=== PATIENT | female | born 1955 | race Caucasian/White ===

== ENCOUNTER 2019-10-02 15:19 | Inpatient (IN) | payer OTHER ==
[2019-10-02] MEDS ORDERED: NITROGLYCERIN SL TABS 0.4 MG TAB SUBLINGUAL STA ×3 (15:52)
[2019-10-02] MEDS ORDERED: ASPIRIN 81 MG PO STA (15:52)
--- NOTE | 2019-10-02 16:01 | ED ---
General Adult HPI - General Chief complaint: Arrhythmia/Palpitations Stated complaint: AFIB Time Seen by Provider: 10/02/19 15:26 Source: patient, RN notes reviewed Mode of arrival: ambulatory Limitations: no limitations - History of Present Illness Initial comments: Patient is a pleasant 64-year-old female presenting to the emergency Department with chest discomfort and palpitations. Onset of symptoms was yesterday. Symptoms have been waxing and waning. Discomfort is currently 5/10. Discomfort feels a pressure. Patient is unclear if there could be some radiation towards left arm. Patient does have some associated dyspnea. Symptoms do worsen with exertion. Patient is easily fatigued. No nausea. No diaphoresis. Patient does have history of somewhat similar symptoms previously associated with heart problems. - Related Data Home Medications Medication Instructions Recorded Confirmed ALPRAZolam [Xanax] 0.5 mg PO DAILY PRN 10/02/19 10/02/19 Citalopram Hydrobromide [CeleXA] 40 mg PO HS 10/02/19 10/02/19 Gabapentin [Neurontin] 100 mg PO HS 10/02/19 10/02/19 Metoprolol Succinate [Toprol XL] 50 mg PO HS 10/02/19 10/02/19 Warfarin [Coumadin] 7.5 mg PO HS 10/02/19 10/02/19 amLODIPine [Norvasc] 5 mg PO HS 10/02/19 10/02/19 glipiZIDE [Glucotrol XL] 2.5 mg PO HS 10/02/19 10/02/19 Allergies Allergy/AdvReac Type Severity Reaction Status Date / Time ELLE Inhibitors Allergy Dyspnea Verified 10/02/19 16:37 latex Allergy Rash/Hives Verified 10/02/19 16:37 Review of Systems ROS Statement: Those systems with pertinent positive or pertinent negative responses have been documented in the HPI. ROS Other: All systems not noted in ROS Statement are negative. Constitutional: Denies: fever Eyes: Denies: eye pain ENT: Denies: throat pain Respiratory: Denies: cough Cardiovascular: Reports: chest pain, palpitations Endocrine: Denies: fatigue Gastrointestinal: Denies: abdominal pain Genitourinary: Denies: dysuria Musculoskeletal: Denies: back pain Skin: Denies: rash Neurological: Denies: weakness Past Medical History Past Medical History: Atrial Fibrillation, Diabetes Mellitus, Hyperlipidemia, Hypertension, Sleep Apnea/CPAP/BIPAP Additional Past Medical History / Comment(s): aortic heart valve narrowing History of Any Multi-Drug Resistant Organisms: None Reported Past Surgical History: Bariatric Surgery, Heart Catheterization With Stent Past Psychological History: Anxiety, Depression Smoking Status: Never smoker Past Alcohol Use History: None Reported Past Drug Use History: None Reported General Exam Limitations: no limitations General appearance: alert, in no apparent distress Head exam: Present: normocephalic Eye exam: Present: normal appearance, PERRL ENT exam: Present: normal oropharynx Respiratory exam: Present: normal lung sounds bilaterally Cardiovascular Exam: Present: irregular rhythm Expanded Peripheral pulses: 2+: Radial (R), Radial (L), Dorsalis Pedis (R), Dorsalis Pedis (L) GI/Abdominal exam: Present: soft. Absent: tenderness Extremities exam: Present: normal inspection. Absent: pedal edema, calf tenderness Neurological exam: Present: alert Psychiatric exam: Present: normal affect, normal mood Skin exam: Present: normal color Course Vital Signs 10/02/19 10/02/19 10/02/19 15:23 15:39 16:06 Temperature 97.5 F L Pulse Rate 111 H 109 H Pulse Rate [ 122 H [employer] ] Respiratory 20 18 Rate Blood Pressure 142/80 138/93 O2 Sat by Pulse 100 100 Oximetry 10/02/19 10/02/19 10/02/19 16:11 16:20 16:43 Temperature Pulse Rate 116 H 114 H 101 H Pulse Rate [ [employer] ] Respiratory 18 18 18 Rate Blood Pressure 112/72 99/82 110/95 O2 Sat by Pulse 98 98 100 Oximetry EKG Findings - EKG Comments: EKG Findings:: A. fib with RVR, rate 117. QRS 80. QT 332. QTC 463. Left axis. LVH criteria. No acute ST change. Q wave in leads 3 and aVF. Medical Decision Making - Medical Decision Making Patient reevaluated and resting comfortably in bed. Discomfort is improved however not completely resolved. Patient and family updated on results and plan. Case was discussed in detail with Dr. Gilmore, who will admit covered for hospital call. - Lab Data Result diagrams: 10/02/19 15:40 10/02/19 15:40 Lab Results 10/02/19 10/02/19 10/02/19 Range/Units 15:40 15:40 15:40 WBC 7.4 (3.8-10.6) k/uL RBC 4.59 (3.80-5.40) m/uL Hgb 10.9 L (11.4-16.0) gm/dL Hct 35.2 (34.0-46.0) % MCV 76.7 L (80.0-100.0) fL MCH 23.6 L (25.0-35.0) pg MCHC 30.8 L (31.0-37.0) g/dL RDW 17.0 H (11.5-15.5) % Plt Count 289 (150-450) k/uL Neutrophils % 67 % Lymphocytes % 24 % Monocytes % 5 % Eosinophils % 1 % Basophils % 0 % Neutrophils # 5.0 (1.3-7.7) k/uL Lymphocytes # 1.8 (1.0-4.8) k/uL Monocytes # 0.4 (0-1.0) k/uL Eosinophils # 0.1 (0-0.7) k/uL Basophils # 0.0 (0-0.2) k/uL Hypochromasia Slight Anisocytosis Slight Microcytosis Slight PT 16.9 H (9.0-12.0) sec INR 1.7 H (<1.2) APTT 26.1 (22.0-30.0) sec Sodium 136 L (137-145) mmol/L Potassium 4.2 (3.5-5.1) mmol/L Chloride 107 (98-107) mmol/L Carbon Dioxide 21 L (22-30) mmol/L Anion Gap 8 mmol/L BUN 17 (7-17) mg/dL Creatinine 0.77 (0.52-1.04) mg/dL Est GFR (CKD-EPI)AfAm >90 (>60 ml/min/1.73 sqM) Est GFR (CKD-EPI)NonAf 83 (>60 ml/min/1.73 sqM) Glucose 117 H (74-99) mg/dL Calcium 8.6 (8.4-10.2) mg/dL Magnesium 1.8 (1.6-2.3) mg/dL Total Bilirubin 0.3 (0.2-1.3) mg/dL AST 27 (14-36) U/L ALT 19 (4-34) U/L Alkaline Phosphatase 164 H (38-126) U/L Troponin I (0.000-0.034) ng/mL Total Protein 7.0 (6.3-8.2) g/dL Albumin 3.9 (3.5-5.0) g/dL Amylase 54 (30-110) U/L Lipase 199 (23-300) U/L 10/02/19 Range/Units 15:40 WBC (3.8-10.6) k/uL RBC (3.80-5.40) m/uL Hgb (11.4-16.0) gm/dL Hct (34.0-46.0) % MCV (80.0-100.0) fL MCH (25.0-35.0) pg MCHC (31.0-37.0) g/dL RDW (11.5-15.5) % Plt Count (150-450) k/uL Neutrophils % % Lymphocytes % % Monocytes % % Eosinophils % % Basophils % % Neutrophils # (1.3-7.7) k/uL Lymphocytes # (1.0-4.8) k/uL Monocytes # (0-1.0) k/uL Eosinophils # (0-0.7) k/uL Basophils # (0-0.2) k/uL Hypochromasia Anisocytosis Microcytosis PT (9.0-12.0) sec INR (<1.2) APTT (22.0-30.0) sec Sodium (137-145) mmol/L Potassium (3.5-5.1) mmol/L Chloride (98-107) mmol/L Carbon Dioxide (22-30) mmol/L Anion Gap mmol/L BUN (7-17) mg/dL Creatinine (0.52-1.04) mg/dL Est GFR (CKD-EPI)AfAm (>60 ml/min/1.73 sqM) Est GFR (CKD-EPI)NonAf (>60 ml/min/1.73 sqM) Glucose (74-99) mg/dL Calcium (8.4-10.2) mg/dL Magnesium (1.6-2.3) mg/dL Total Bilirubin (0.2-1.3) mg/dL AST (14-36) U/L ALT (4-34) U/L Alkaline Phosphatase (38-126) U/L Troponin I <0.012 (0.000-0.034) ng/mL Total Protein (6.3-8.2) g/dL Albumin (3.5-5.0) g/dL Amylase (30-110) U/L Lipase (23-300) U/L - Radiology Data Radiology results: image reviewed (Chest x-ray shows no acute process) Critical Care Time Critical Care Time: Yes Total Critical Care Time: 32 Disposition Clinical Impression: Atrial fibrillation with RVR, Tachycardia Disposition: ADMITTED IP TO THIS HOSP Is patient prescribed a controlled substance at d/c from ED?: No Referrals: Alex Nur MD [Primary Care Provider] - 1-2 days Decision Time: 17:05
--- NOTE | 2019-10-02 16:06 | XR ---
EXAMINATION TYPE: XR chest 2V DATE OF EXAM: 10/02/2019 COMPARISON: NONE HISTORY: Intermittent heart palpitations, shortness of breath, and chest heaviness. TECHNIQUE: Frontal and lateral views of the chest are obtained. FINDINGS: Elevation and eventration anterior aspect right hemidiaphragm. There is some chronic paren chymal change without suspicious focal air space opacity, pleural effusion, or pneumothorax seen. Th e cardiac silhouette size is upper limits of normal. The osseous structures are demineralized. Unde rlying scoliosis is present. Overlying vertical skin santosh partially imaged in the abdomen. IMPRESSION: Chronic changes without acute pulmonary process.
[2019-10-02 16:12] LABS: Anisocytosis Slight; Basophils % (A) 0 %; Eosinophils # (A) 0.1 k/uL (0-0.7); Eosinophils % (A) 1 %; HCT 35.2 % (34.0-46.0); HGB 10.9 gm/dL (11.4-16.0); Hypochromasia Slight; Lymphocytes # (A) 1.8 k/uL (1.0-4.8); Lymphocytes % (A) 24 %; MCH 23.6 pg (25.0-35.0); MCHC 30.8 g/dL (31.0-37.0); MCV 76.7 fL (80.0-100.0); Mean Platelet Volume 7.6; Microcytosis Slight; Monocytes # (A) 0.4 k/uL (0-1.0); Monocytes % (A) 5 %; Neutrophils % (A) 67 %; Platelet Count 289 k/uL (150-450); RBC 4.59 m/uL (3.80-5.40); WBC 7.4 k/uL (3.8-10.6)
[2019-10-02] MEDS ORDERED: DILTIAZEM 125 MG in SODIUM CHLORIDE 0.9% 100 ML IV SCH (16:15)
[2019-10-02 16:19] LABS: INR 1.7 (<1.2); Partial Thromboplastin Time 26.1 sec (22.0-30.0); Prothrombin Time 16.9 sec (9.0-12.0)
[2019-10-02 16:22] LABS: ALT 19 U/L (4-34); AST 27 U/L (14-36); African American GFR (CKD) >90 (>60 ml/min/1.73 sqM); Albumin 3.9 g/dL (3.5-5.0); Alkaline Phosphatase 164 U/L (38-126); Amylase 54 U/L (30-110); Anion Gap 8 mmol/L; Blood Urea Nitrogen 17 mg/dL (7-17); Calcium 8.6 mg/dL (8.4-10.2); Carbon Dioxide 21 mmol/L (22-30); Chloride 107 mmol/L (98-107); Glucose 117 mg/dL (74-99); Magnesium 1.8 mg/dL (1.6-2.3); Non-African American GFR(CKD) 83 (>60 ml/min/1.73 sqM); Potassium 4.2 mmol/L (3.5-5.1); Sodium 136 mmol/L (137-145); Total Bilirubin 0.3 mg/dL (0.2-1.3)
[2019-10-02] MEDS ORDERED: ALPRAZolam 0.5 MG TAB PO PRN (17:06)
[2019-10-02] MEDS ORDERED: NITROGLYCERIN SL TABS 0.4 MG TAB SUBLINGUAL PRN (17:07)
[2019-10-02] MEDS ORDERED: WARFARIN 3 MG TAB PO ONE (18:00)
[2019-10-02] MEDS: NITROGLYCERIN OINT 1 INCH/GM PACKET TOPICAL SCH (20:02)
[2019-10-02] MEDS ORDERED: METOPROLOL SUCCINATE (ER) 50 MG TAB.ER.24H PO SCH (21:00)
[2019-10-02 21:09] LABS: Glucose,Whole Blood 121 mg/dL (75-99)
[2019-10-02] MEDS: amLODIPine 5 MG TAB PO SCH (21:33)
[2019-10-02] MEDS: CITALOPRAM HYDROBROMIDE 20 MG TAB PO SCH (21:33)
[2019-10-02] MEDS: GABAPENTIN 100 MG CAP PO SCH (21:33)
[2019-10-02] MEDS: WARFARIN 7.5 MG TAB PO SCH (23:22)
[2019-10-02] MEDS ORDERED: TEMAZEPAM 15 MG CAP PO PRN (23:59)
[2019-10-02] MEDS ORDERED: ACETAMINOPHEN TAB 500 MG TAB PO PRN (23:59)
[2019-10-03] MEDS: NITROGLYCERIN OINT 1 INCH/GM PACKET TOPICAL SCH ×2 (01:18→05:15)
--- NOTE | 2019-10-03 05:39 | HP ---
HISTORY AND PHYSICAL DATE OF SERVICE: 10/02/2019 CHIEF COMPLAINT: Palpitations. HISTORY OF PRESENT ILLNESS: This 64-year-old woman with a past medical history of paroxysmal atrial fibrillation, history of diabetes, hypertension, hyperlipidemia, sleep apnea, being followed by primary physician in the [facility] area has recently moved to [place]. The patient is complaining of chest discomfort and palpitations. The symptoms have been waxing and waning and chest discomfort is 5 to 10 vague, situated in the anterior part, feels like pressure without much radiation even though patient is unsure if there is radiation to the left arm. There was shortness of breath. It was also complaining of. Patient was found to be in atrial fibrillation with fast ventricular rate and patient is admitted with Cardizem drip at this time. The patient is being closely monitored. Troponins are negative. There is no history of fever, rigors. No headache, loss of consciousness, or seizures at this time. PAST MEDICAL HISTORY: Atrial fibrillation paroxysmal, diabetes mellitus, hypertension, hyperlipidemia, sleep apnea, bariatric surgery. MEDICATIONS: Medications are: 1. Glipizide, Glucotrol, 2.5 mg at bedtime. 2. Norvasc 5 mg at bedtime. 3. Coumadin 7.5 mg at bedtime. 4. Toprol XL 50 mg at bedtime. 5. Neurontin 100 mg at bedtime. 6. Celexa 40 mg at bedtime. 7. Xanax 0.5 daily p.r.n. ALLERGIES: ELLE INHIBITORS. LATEX. FAMILY HISTORY: No history of heart disease or strokes in the family. SOCIAL HISTORY: No history of smoking. No history of alcohol intake. REVIEW OF SYSTEMS: ENT: No diminished hearing or diminished. CARDIOVASCULAR SYSTEM: As mentioned earlier. RESPIRATORY SYSTEM: As mentioned earlier. GI: No nausea. : No dysuria. NERVOUS SYSTEM: No numbness or weakness. ALLERGY/IMMUNOLOGY: No asthma or hayfever. MUSCULOSKELETAL: As mentioned earlier. HEMATOLOGY: No history of anemia. ENDOCRINE: As mentioned earlier. CONSTITUTIONAL: As mentioned earlier. DERMATOLOGY: Negative. RHEUMATOLOGY: Negative. PSYCHIATRY: As mentioned earlier. PHYSICAL EXAMINATION: The patient is alert and oriented x3. The pulse is 101, irregular. Blood pressure is 151/86, respiration 18, temperature 97.6, pulse ox 98% on room air. HEENT: Conjunctivae normal. Oral mucosa moist. NECK: No jugular venous distention. CARDIOVASCULAR: S1, S2 muffled, irregular. RESPIRATORY: Breath sounds diminished at the bases. No rhonchi, no crackles. ABDOMEN: Soft, nontender. No mass palpable. LEGS: No edema, no swelling. NERVOUS SYSTEM: Higher functions as mentioned earlier. Moves all 4 limbs. No focal motor or sensory deficit. LYMPHATICS: No lymphadenopathy of the neck, axillae or groin. SKIN: No ulcer, rash or bleeding. JOINTS: No active deforming arthropathy. LABS: WBC 7.4, hemoglobin 10.9, INR 1.7, sodium 136. ASSESSMENT: 1. Atrial fibrillation with fast ventricular rate. 2. Paroxysmal atrial fibrillation. 3. Hyponatremia. 4. Anemia microcytic of undetermined etiology. 5. Diabetes mellitus type 2. 6. Hypertension. 7. Hyperlipidemia. 8. Sleep apnea. 9. History of aortic stenosis. 10.History of bariatric surgery. 11.History of coronary artery disease, stent. 12.History of anxiety, depression. RECOMMENDATIONS AND DISCUSSION: This 64-year-old woman who presented with multiple complex medical issues, we will monitor the patient closely. Continue the current medications. Continue with the Cardizem drip. Resume the home medications, beta blockers. Otherwise closely follow with Cardiology. Serial troponins have been noted. The patient might also require possibly a stress test as an outpatient also. Otherwise resume the home medications. Guarded prognosis because of multiple complex medical issues. Further recommendations to follow. MMODL / IJN: [id number] / MTDRo
[2019-10-03 05:50] LABS: Anisocytosis Slight; Basophils % (A) 1 %; Eosinophils # (A) 0.2 k/uL (0-0.7); Eosinophils % (A) 3 %; HCT 31.1 % (34.0-46.0); Hypochromasia Moderate; Lymphocytes # (A) 1.7 k/uL (1.0-4.8); Lymphocytes % (A) 28 %; MCH 22.9 pg (25.0-35.0); MCHC 29.3 g/dL (31.0-37.0); MCV 78.3 fL (80.0-100.0); Mean Platelet Volume 7.4; Microcytosis Slight; Monocytes # (A) 0.3 k/uL (0-1.0); Monocytes % (A) 5 %; Neutrophils # (A) 3.5 k/uL (1.3-7.7); Neutrophils % (A) 61 %; Platelet Count 269 k/uL (150-450); RBC 3.97 m/uL (3.80-5.40); RDW 17.1 % (11.5-15.5); WBC 5.8 k/uL (3.8-10.6)
[2019-10-03 05:59] LABS: HGB 9.1 gm/dL (11.4-16.0)
[2019-10-03 06:05] LABS: African American GFR (CKD) >90 (>60 ml/min/1.73 sqM); Anion Gap 6 mmol/L; Blood Urea Nitrogen 20 mg/dL (7-17); Calcium 8.4 mg/dL (8.4-10.2); Carbon Dioxide 23 mmol/L (22-30); Chloride 108 mmol/L (98-107); Glucose 94 mg/dL (74-99); Non-African American GFR(CKD) >90 (>60 ml/min/1.73 sqM); Sodium 137 mmol/L (137-145)
[2019-10-03 06:09] LABS: Cholesterol 172 mg/dL (<200); HDL Cholesterol 49 mg/dL (40-60); LDL Cholesterol,Calculated 103 mg/dL (0-99); Triglycerides 100 mg/dL (<150)
[2019-10-03 06:11] LABS: Glucose,Whole Blood 121 mg/dL (75-99)
[2019-10-03] MEDS ORDERED: ASPIRIN 325 MG TAB PO SCH (09:00)
--- NOTE | 2019-10-03 10:47 | P.CRDCN ---
History of Present Illness Consult date: 10/03/19 Requesting physician: Nivia Gilmore Consult reason: atrial fibrillation Chief complaint: Shortness of breath, chest pressure and palpitations History of present illness: This is a pleasant 64-year-old female who recently moved to [facility], from [place]. She has a known history of coronary artery disease with prior myocardial infarction and stent placement, she thinks it was in the year 2011 or earlier, paroxysmal atrial fibrillation, anemia of undetermined etiology, diabetes, hypertension, hyperlipidemia, presents to the hospital with symptoms that started as a pressure sensation in the chest, with associated shortness of breath, palpitations. The patient initially went to urgent care and was found to be in A. fib, recommended to come here. Chest x-ray showed c hronic changes without acute pulmonary process. EKG on presentation here showed atrial fibrillation with a rapid ventricular response. Blood pressure on arrival 142/80 with a heart rate of 120, 100% on room air. Afebrile. This morning the patient is currently in a normal sinus rhythm. At the time of my evaluation, patient actually feels quite well, back to her normal self. I did have a discussion with the patient this morning regarding her anticoagulation. She is on Coumadin, she states that they looked into the newer anticoagulants several years ago but she was not covered. We will reevaluate that again this admission. White blood cell count on admission 7.4, hemoglobin 10.9, 9.1 this morning, platelet count 269. Sodium 137, potassium 4.0, BUN 20, creatinine 0.6. Troponins are negative 3. Patient denies any black stool or blood in her stool. Does state that she had a colonoscopy in the last few years which was normal, she also was referred to hematology as an outpatient. Past Medical History Past Medical History: Atrial Fibrillation, Diabetes Mellitus, Hyperlipidemia, Hypertension, Sleep Apnea/CPAP/BIPAP Additional Past Medical History / Comment(s): aortic heart valve narrowing History of Any Multi-Drug Resistant Organisms: None Reported Past Surgical History: Bariatric Surgery, Heart Catheterization With Stent Date of Last Stent Placement:: Unknown Past Psychological History: Anxiety, Depression Smoking Status: Never smoker Past Alcohol Use History: None Reported Past Drug Use History: None Reported Medications and Allergies Home Medications Medication Instructions Recorded Confirmed Type ALPRAZolam [Xanax] 0.5 mg PO DAILY PRN 10/02/19 10/02/19 History Citalopram Hydrobromide [CeleXA] 40 mg PO HS 10/02/19 10/02/19 History Gabapentin [Neurontin] 100 mg PO HS 10/02/19 10/02/19 History Metoprolol Succinate [Toprol XL] 50 mg PO HS 10/02/19 10/02/19 History Warfarin [Coumadin] 7.5 mg PO HS 10/02/19 10/02/19 History amLODIPine [Norvasc] 5 mg PO HS 10/02/19 10/02/19 History glipiZIDE [Glucotrol XL] 2.5 mg PO HS 10/02/19 10/02/19 History Allergies Allergy/AdvReac Type Severity Reaction Status Date / Time ELLE Inhibitors Allergy Dyspnea Verified 10/02/19 16:37 latex Allergy Rash/Hives Verified 10/02/19 16:37 Physical Exam Vitals: Vital Signs Temp Pulse Pulse Resp BP BP Pulse Ox 10/03/19 04:00 56 L 12 112/53 98 10/03/19 00:00 73 16 124/56 96 10/02/19 20:00 96.1 F L 57 L 16 184/73 98 10/02/19 19:42 97.6 F 92 151/86 99 10/02/19 17:29 87 18 112/67 99 10/02/19 16:43 101 H 18 110/95 100 10/02/19 16:20 114 H 18 99/82 98 10/02/19 16:11 116 H 18 112/72 98 10/02/19 16:06 109 H 18 138/93 100 10/02/19 15:39 122 H 10/02/19 15:23 97.5 F L 111 H 20 142/80 100 Intake and Output 10/02/19 10/03/19 10/03/19 22:59 06:59 14:59 Intake Total 540 120 Balance 540 120 Intake: Oral 540 120 Other: Weight 81.647 kg 84.3 kg PHYSICAL EXAMINATION: GENERAL: 64-year-old female in no acute distress at the time of my examination HEENT: Head is atraumatic, normocephalic. Pupils equal, round. Sclera anicteric. Conjunctiva are clear. Mucous membranes of the mouth are moist. Neck is supple. There is no elevated jugular venous pressure. No carotid bruit is heard. HEART EXAMINATION: Heart S1 S2 1 systolic murmur is heard. CHEST EXAMINATION: Lungs are clear to auscultation and precussion. No chest wall tenderness is noted on palpation or with deep breathing. ABDOMEN: Soft, nontender. Bowel sounds are heard. No organomegaly noted. EXTREMITIES: 2+ peripheral pulses with no evidence of peripheral edema and no calf tenderness noted. NEUROLOGIC patient is awake, alert and oriented 3 . . Results 10/03/19 05:24 10/03/19 05:24 Cardiac Enzymes 10/02/19 10/02/19 10/02/19 Range/Units 15:40 15:40 21:17 AST 27 (14-36) U/L Troponin I <0.012 <0.012 (0.000-0.034) ng/mL 10/03/19 Range/Units 03:30 AST (14-36) U/L Troponin I <0.012 (0.000-0.034) ng/mL Coagulation 10/02/19 Range/Units 15:40 PT 16.9 H (9.0-12.0) sec APTT 26.1 (22.0-30.0) sec Lipids 10/03/19 Range/Units 05:24 Triglycerides 100 (<150) mg/dL Cholesterol 172 (<200) mg/dL HDL Cholesterol 49 (40-60) mg/dL CBC 10/02/19 10/03/19 Range/Units 15:40 05:24 WBC 7.4 5.8 (3.8-10.6) k/uL RBC 4.59 3.97 (3.80-5.40) m/uL Hgb 10.9 L 9.1 L D (11.4-16.0) gm/dL Hct 35.2 31.1 L (34.0-46.0) % Plt Count 289 269 (150-450) k/uL Comprehensive Metabolic Panel 10/02/19 10/03/19 Range/Units 15:40 05:24 Sodium 136 L 137 (137-145) mmol/L Potassium 4.2 4.0 (3.5-5.1) mmol/L Chloride 107 108 H (98-107) mmol/L Carbon Dioxide 21 L 23 (22-30) mmol/L BUN 17 20 H (7-17) mg/dL Creatinine 0.77 0.68 (0.52-1.04) mg/dL Glucose 117 H 94 (74-99) mg/dL Calcium 8.6 8.4 (8.4-10.2) mg/dL AST 27 (14-36) U/L ALT 19 (4-34) U/L Alkaline Phosphatase 164 H (38-126) U/L Total Protein 7.0 (6.3-8.2) g/dL Albumin 3.9 (3.5-5.0) g/dL Current Medications Generic Name Dose Route Start Last Admin Trade Name Freq PRN Reason Stop Dose Admin Acetaminophen 500 mg 10/02/19 23:59 Tylenol Tab PO Q6HR PRN Fever and/ or Pain Alprazolam 0.5 mg 10/02/19 17:06 Xanax PO DAILY PRN Anxiety Amlodipine Besylate 5 mg 10/02/19 21:00 10/02/19 21:33 Norvasc PO 5 mg HS GENOVEVA Administration Aspirin 325 mg 10/03/19 09:00 Aspirin PO DAILY GENOVEVA Citalopram Hydrobromide 40 mg 10/02/19 21:00 10/02/19 21:33 Celexa PO 40 mg HS GENOVEVA Administration Gabapentin 100 mg 10/02/19 21:00 10/02/19 21:33 Neurontin PO 100 mg HS GENOVEVA Administration Glipizide 2.5 mg 10/02/19 21:00 10/02/19 21:33 Glucotrol PO 2.5 mg HS GENOVEVA Administration Diltiazem HCl 125 mg/ Sodium 125 mls @ 5 mls/hr 10/02/19 16:15 10/02/19 16:16 Chloride IV 5 mg/hr .Q24H GENOVEVA 5 mls/hr Administration 5 MG/HR Metoprolol Succinate 50 mg 10/02/19 21:00 10/02/19 21:33 Toprol Xl PO 50 mg HS GENOVEVA Administration Nitroglycerin 0.4 mg 10/02/19 17:07 Nitrostat SUBLINGUAL Q5M PRN Chest Pain Nitroglycerin 1 inch 10/02/19 18:00 10/03/19 05:15 Nitro-Bid Oint TOPICAL Not Given Q6HR [facility] Sodium Chloride 10 ml 10/02/19 21:00 10/02/19 21:33 Saline Flush IV Not Given BID [facility] Temazepam 15 mg 10/02/19 23:59 Restoril PO HS PRN Insomnia Warfarin Sodium 7.5 mg 10/02/19 20:00 10/02/19 23:22 Coumadin PO 7.5 mg DAILY@1800 [facility] Administration Protocol Intake and Output 10/02/19 10/03/19 10/03/19 22:59 06:59 14:59 Intake Total 540 120 Balance 540 120 Intake: Oral 540 120 Other: Weight 81.647 kg 84.3 kg 10/03/19 05:24 10/03/19 05:24 EKG Interpretations (text) Admission EKG shows atrial fibrillation with a rapid ventricular response Assessment and Plan Plan: Assessment and plan #1 atrial fibrillation with a rapid ventricular response, patient currently in normal sinus rhythm #2 history of paroxysmal atrial fibrillation, on Coumadin for anticoagulation, INR subtherapeutic #3 hypertension #4 diabetes #5 hyperlipidemia #6 anemia, undetermined etiology, chronic #7 coronary artery disease with prior myocardial infarction and stent placement Plan We will obtain an echocardiogram with Doppler study. Obtain TSH level. Discontinue the Nitropaste, discontinue IV Cardizem. Increase home dose of beta raymond. We will also check into coverage for Eliquis. Further recommendations to follow. DNP note has been reviewed, I agree with a documented findings and plan of care. Patient was seen and examined.
[2019-10-03 11:52] LABS: Glucose,Whole Blood 151 mg/dL (75-99)
--- NOTE | 2019-10-03 15:46 | P.PN ---
Subjective Progress Note Date: 10/03/19 Principal diagnosis: This is a 64-year-old female who was recently admitted with chest pain and palpitations and is being closely monitored. Patient was found to be in atrial fibrillation with fast ventricular rate and was initiated on a Cardizem drip. Patient currently remains on a Cardizem drip at 5 mg per hour and is being closely monitored. Cardiology is following. Patient being transitioned to Toprol-XL. Will continue to monitor closely. Patient is currently on Coumadin and INR today is 1.7. Looking into coverage of Eliquis. Currently patient denies any chest pain, shortness of breath, or palpitations. Patient is afebrile. No reports of nausea or vomiting and patient is tolerating diet. Patient has recently moved into this area and will be looking for providers more locally as she sees people in the [place] area. Will continue to monitor closely. Objective - Vital Signs Vital signs: Vital Signs Temp 97.5 F L 10/03/19 11:40 Pulse 56 L 10/03/19 11:40 Resp 16 10/03/19 11:40 BP 119/60 10/03/19 11:40 Pulse Ox 100 10/03/19 11:40 Intake & Output 10/02/19 10/03/19 10/03/19 18:59 06:59 18:59 Intake Total 540 120 Balance 540 120 Weight 81.647 kg 84.3 kg Intake: Oral 540 120 Other: # Voids 3 - Exam Gen: This is a 64-year-old female sitting up in the chair, awake, alert and oriented 3, well-nourished, well-developed. Temp is 97.5F, pulse is 56, respirations are 16, blood pressure is 119/60, oxygen saturation is 100% on room air. HEENT: Head is atraumatic, normocephalic. Pupils equal, round. Sclerae is anicteric. NECK: Supple. No JVD. No lymphadenopathy. No thyromegaly. LUNGS: Breath sounds diminished at the bases with no wheezing or rhonchi noted. No intercostal retractions. HEART: S1, S2 are muffled ABDOMEN: Soft. Bowel sounds are present. No masses. No tenderness. EXTREMITIES: No pedal edema. No calf tenderness. NEUROLOGICAL: Patient is awake, alert and oriented x3. Cranial nerves 2 through 12 are grossly intact. - Labs CBC & Chem 7: 10/03/19 05:24 10/03/19 05:24 Labs: Abnormal Lab Results - Last 24 Hours (Table) 10/02/19 10/02/19 10/02/19 Range/Units 15:40 15:40 15:40 Hgb 10.9 L (11.4-16.0) gm/dL Hct (34.0-46.0) % MCV 76.7 L (80.0-100.0) fL MCH 23.6 L (25.0-35.0) pg MCHC 30.8 L (31.0-37.0) g/dL RDW 17.0 H (11.5-15.5) % PT 16.9 H (9.0-12.0) sec INR 1.7 H (<1.2) Sodium 136 L (137-145) mmol/L Chloride (98-107) mmol/L Carbon Dioxide 21 L (22-30) mmol/L BUN (7-17) mg/dL Glucose 117 H (74-99) mg/dL POC Glucose (mg/dL) (75-99) mg/dL Alkaline Phosphatase 164 H (38-126) U/L LDL Cholesterol, Calc (0-99) mg/dL 10/02/19 10/03/19 10/03/19 Range/Units 21:07 05:24 05:24 Hgb 9.1 L D (11.4-16.0) gm/dL Hct 31.1 L (34.0-46.0) % MCV 78.3 L (80.0-100.0) fL MCH 22.9 L (25.0-35.0) pg MCHC 29.3 L (31.0-37.0) g/dL RDW 17.1 H (11.5-15.5) % PT (9.0-12.0) sec INR (<1.2) Sodium (137-145) mmol/L Chloride (98-107) mmol/L Carbon Dioxide (22-30) mmol/L BUN (7-17) mg/dL Glucose (74-99) mg/dL POC Glucose (mg/dL) 121 H (75-99) mg/dL Alkaline Phosphatase (38-126) U/L LDL Cholesterol, Calc 103 H (0-99) mg/dL 10/03/19 10/03/19 10/03/19 Range/Units 05:24 06:09 11:51 Hgb (11.4-16.0) gm/dL Hct (34.0-46.0) % MCV (80.0-100.0) fL MCH (25.0-35.0) pg MCHC (31.0-37.0) g/dL RDW (11.5-15.5) % PT (9.0-12.0) sec INR (<1.2) Sodium (137-145) mmol/L Chloride 108 H (98-107) mmol/L Carbon Dioxide (22-30) mmol/L BUN 20 H (7-17) mg/dL Glucose (74-99) mg/dL POC Glucose (mg/dL) 121 H 151 H (75-99) mg/dL Alkaline Phosphatase (38-126) U/L LDL Cholesterol, Calc (0-99) mg/dL Assessment and Plan Assessment: Atrial fibrillation with fast ventricular rate, paroxysmal atrial fibrillation Hyponatremia Anemia, microcytic of undetermined etiology Diabetes mellitus type 2 Hypertension Hyperlipidemia Sleep apnea history of aortic stenosis History of bariatric surgery History of coronary artery disease, stent history of anxiety, depression Recommendations and discussion: Recommend to continue current medications, management, and symptomatic treatment. Cardiology is following. Due to multiple complex medical issues, prognosis is guarded. Further recommendations to follow. Patient underwent echo and currently pending at this time. Patient to undergo stress test in the morning. Case management and social work following for possible discharge needs and possibly check eligibility of Eliquis. Possible discharge in 24-48 hours.
[2019-10-03 16:49] LABS: Glucose,Whole Blood 119 mg/dL (75-99)
[2019-10-03] MEDS: WARFARIN 7.5 MG TAB PO SCH (17:59)
[2019-10-03] MEDS ORDERED: METOPROLOL SUCCINATE (ER) 25 MG TAB.ER.24H PO SCH (21:00)
[2019-10-03 21:04] LABS: Glucose,Whole Blood 207 mg/dL (75-99)
[2019-10-03] MEDS: amLODIPine 5 MG TAB PO SCH (21:46)
[2019-10-03] MEDS: GABAPENTIN 100 MG CAP PO SCH (21:46)
[2019-10-03] MEDS: CITALOPRAM HYDROBROMIDE 20 MG TAB PO SCH (21:46)
[2019-10-04] MEDS ORDERED: DIPYRIDAMOLE IV ONE (06:00)
[2019-10-04] MEDS ORDERED: SODIUM CHLORIDE 0.9% IV ONE (06:00)
[2019-10-04] MEDS ORDERED: CAFFEINE CITRATE 60 MG/3 ML VIAL IV PRN (06:00)
[2019-10-04] MEDS ORDERED: AMINOPHYLLINE 500 MG/20 ML VIAL IV PRN (06:00)
[2019-10-04 06:16] LABS: Glucose,Whole Blood 89 mg/dL (75-99)
[2019-10-04 06:58] LABS: Anisocytosis Slight; Basophils % (A) 1 %; Eosinophils # (A) 0.1 k/uL (0-0.7); Eosinophils % (A) 2 %; HCT 30.7 % (34.0-46.0); HGB 9.3 gm/dL (11.4-16.0); Hypochromasia Moderate; Lymphocytes # (A) 1.6 k/uL (1.0-4.8); Lymphocytes % (A) 25 %; MCH 23.4 pg (25.0-35.0); MCHC 30.1 g/dL (31.0-37.0); MCV 77.7 fL (80.0-100.0); Microcytosis Slight; Monocytes # (A) 0.4 k/uL (0-1.0); Monocytes % (A) 6 %; Neutrophils # (A) 4.1 k/uL (1.3-7.7); Neutrophils % (A) 65 %; Platelet Count 251 k/uL (150-450); RBC 3.95 m/uL (3.80-5.40); WBC 6.3 k/uL (3.8-10.6)
[2019-10-04 07:07] LABS: INR 2.1 (<1.2); Prothrombin Time 20.9 sec (9.0-12.0)
[2019-10-04 07:13] LABS: African American GFR (CKD) >90 (>60 ml/min/1.73 sqM); Anion Gap 5 mmol/L; Blood Urea Nitrogen 18 mg/dL (7-17); Calcium 8.2 mg/dL (8.4-10.2); Carbon Dioxide 25 mmol/L (22-30); Chloride 108 mmol/L (98-107); Glucose 84 mg/dL (74-99); Non-African American GFR(CKD) >90 (>60 ml/min/1.73 sqM); Potassium 4.4 mmol/L (3.5-5.1); Sodium 138 mmol/L (137-145)
[2019-10-04 08:45] VITALS: RESP 16
[2019-10-04] MEDS ORDERED: ASPIRIN 81 MG PO SCH (09:00)
--- NOTE | 2019-10-04 11:08 | NM ---
EXAMINATION TYPE: NM stress persantine cardiolit DATE OF EXAM: 10/04/2019 COMPARISON: NONE HISTORY: Chest pain TECHNIQUE: After the intravenous administration of 10.29 mCi Tc 99m Sestamibi - Cardiolite resting S PECT images acquired 55 minutes post injection. The patient received 48 mg Persantine, 26.4 mCi Tc 99m Sestamibi - Stress images obtained 45 minutes post injection FINDINGS: Review of stress and rest SPECT images demonstrates no distinct perfusion abnormality. Gated analysi s shows normal wall motion with an estimated left ventricular ejection fraction of 52 %. IMPRESSION: No scintigraphic evidence for reversible ischemia.
[2019-10-04 11:36] LABS: Glucose,Whole Blood 132 mg/dL (75-99)
[2019-10-04 12:55] VITALS: BP 145/88; PULSE 68; TEMP 98
--- NOTE | 2019-10-04 13:08 | P.PN ---
Subjective Progress Note Date: 10/04/19 This is a pleasant 64-year-old female who recently moved to [facility], from [place]. She has a known history of coronary artery disease with prior myocardial infarction and stent placement, she thinks it was in the year 2011 or earlier, paroxysmal atrial fibrillation, anemia of undetermined etiology, diabetes, hypertension, hyperlipidemia, presents to the hospital with symptoms that started as a pressure sensation in the chest, with associated shortness of breath, palpitations. The patient initially went to urgent care and was found to be in A. fib, recommended to come here. Chest x-ray showed chronic changes without acute pulmonary process. EKG on presentation here showed atrial fibrillation with a rapid ventricular response. Blood pressure on arrival 142/80 with a heart rate of 120, 100% on room air. Afebrile. This morning the patient is currently in a normal sinus rhythm. At the time of my evaluation, patient actually feels quite well, back to her normal self. I did have a discussion with the patient this morning regarding her anticoagulation. She is on Coumadin, she states that they looked into the newer anticoagulants several years ago but she was not covered. We will reevaluate that again this admission. White blood cell count on admission 7.4, hemoglobin 10.9, 9.1 this morning, platelet count 269. Sodium 137, potassium 4.0, BUN 20, creatinine 0.6. Troponins are negative 3. Patient denies any black stool or blood in her stool. Does state that she had a colonoscopy in the last few years which was normal, she also was referred to hematology as an outpatient. 10/04/2019 Patient seen and examined this morning, Persantine stress test was negative for any reversible ischemia. She continues to be in atrial fibrillation with a controlled ventricular response. We will discontinue her Coumadin and start the patient on Eliquis. She may be discharged home from our perspective. Objective - Vital Signs Vital signs: Vital Signs Temp 98 F 10/04/19 12:00 Pulse 68 10/04/19 12:00 Resp 16 10/04/19 12:00 BP 145/88 10/04/19 12:00 Pulse Ox 100 10/04/19 12:00 Intake & Output 10/03/19 10/04/19 10/04/19 18:59 06:59 18:59 Intake Total 240 540 Balance 240 540 Weight 85.9 kg 85.9 kg Intake: Oral 240 540 Other: # Voids 3 3 1 - Exam PHYSICAL EXAMINATION: GENERAL: 64-year-old female in no acute distress at the time of my examination HEENT: Head is atraumatic, normocephalic. Pupils equal, round. Sclera anicteric. Conjunctiva are clear. Mucous membranes of the mouth are moist. Neck is supple. There is no elevated jugular venous pressure. No carotid bruit is heard. HEART EXAMINATION: Heart S1 S2 1 systolic murmur is heard. CHEST EXAMINATION: Lungs are clear to auscultation and precussion. No chest wall tenderness is noted on palpation or with deep breathing. ABDOMEN: Soft, nontender. Bowel sounds are heard. No organomegaly noted. EXTREMITIES: 2+ peripheral pulses with no evidence of peripheral edema and no calf tenderness noted. NEUROLOGIC patient is awake, alert and oriented 3 . - Labs CBC & Chem 7: 10/04/19 06:33 10/04/19 06:33 Labs: Abnormal Lab Results - Last 24 Hours (Table) 10/03/19 10/03/19 10/04/19 Range/Units 16:48 21:02 06:33 Hgb 9.3 L (11.4-16.0) gm/dL Hct 30.7 L (34.0-46.0) % MCV 77.7 L (80.0-100.0) fL MCH 23.4 L (25.0-35.0) pg MCHC 30.1 L (31.0-37.0) g/dL RDW 17.0 H (11.5-15.5) % PT (9.0-12.0) sec INR (<1.2) Chloride (98-107) mmol/L BUN (7-17) mg/dL POC Glucose (mg/dL) 119 H 207 H (75-99) mg/dL Calcium (8.4-10.2) mg/dL 10/04/19 10/04/19 10/04/19 Range/Units 06:33 06:33 11:34 Hgb (11.4-16.0) gm/dL Hct (34.0-46.0) % MCV (80.0-100.0) fL MCH (25.0-35.0) pg MCHC (31.0-37.0) g/dL RDW (11.5-15.5) % PT 20.9 H (9.0-12.0) sec INR 2.1 H (<1.2) Chloride 108 H (98-107) mmol/L BUN 18 H (7-17) mg/dL POC Glucose (mg/dL) 132 H (75-99) mg/dL Calcium 8.2 L (8.4-10.2) mg/dL Assessment and Plan Plan: Assessment and plan #1 atrial fibrillation with a rapid ventricular response, patient currently in normal sinus rhythm #2 history of paroxysmal atrial fibrillation, on Coumadin for anticoagulation, INR subtherapeutic #3 hypertension #4 diabetes #5 hyperlipidemia #6 anemia, undetermined etiology, chronic #7 coronary artery disease with prior myocardial infarction and stent placement Plan Persantine stress test negative for any reversible ischemia. From cardiology's perspective, patient may be discharged home today. We will make a follow-up appointment in the office post discharge. DNP note has been reviewed, I agree with a documented findings and plan of care. Patient was seen and examined.
--- NOTE | 2019-10-04 14:18 | P.DS ---
Providers Date of admission: 10/02/19 17:07 Expected date of discharge: 10/04/19 Attending physician: Nivia Gilmore Consults: 10/02/19 17:07 Consult Physician Urgent Consulting Provider: Hemanth Abbasi Consult Reason/Comments: cp and a fib w rvr Do you want consulting provider notified?: Yes Primary care physician: Alex Nur MD Hospital Course: Final diagnosis Atrial fibrillation with fast ventricular rate, paroxysmal atrial fibrillation Hyponatremia Anemia, microcytic of undetermined etiology Diabetes mellitus type 2 Hypertension Hyperlipidemia Sleep apnea history of aortic stenosis History of bariatric surgery History of coronary artery disease, stent history of anxiety, depression Discharge disposition Patient is being discharged in a stable condition with guarded prognosis to home and will follow-up with Dr. Cooley in the outpatient setting upon discharge. Will also follow-up with Dr. Linares in the outpatient setting as well. Patient will be continued on Eliquis 5 mg twice daily along with Toprol-XL 75 mg daily. Total time taken is 35 minutes. History of present illness This is a 64-year-old female who was recently admitted with chest pain and pa lpitations was being closely monitored. Patient was found to be in atrial fibrillation with fast ventricular rate and was started on a Cardizem drip. Patient was taking Toprol-XL at home and will continue at an increased dose along with Eliquis 5 mg twice daily and a baby aspirin daily. Patient underwent a stress test today which was negative. Currently no reports of chest pain, worsening shortness of breath, or palpitations. Patient is afebrile. No reports of nausea vomiting and patient is tolerating diet. On exam vital signs are stable. Temp is 98 F, pulse is 68, respirations are 16, blood pressure is 145/88, oxygen saturation is 100 percent on room air. Cardio S1, S2 are muffled. Respiratory system shows diminished breath sounds at the bases with no wheezing or rhonchi noted. Abdomen is soft and nontender. Nervous system shows no focal deficits. Please refer to medication reconciliation sheet for a list of medications. Patient Condition at Discharge: Stable Plan - Discharge Summary Discharge Rx Participant: Yes New Discharge Prescriptions: New Aspirin 81 mg PO DAILY 30 Days #30 chew Apixaban [Eliquis] 5 mg PO BID 30 Days #60 tab Metoprolol Succinate (ER) [Toprol XL] 75 mg PO HS 30 Days #90 tab.er.24h Continue glipiZIDE [Glucotrol XL] 2.5 mg PO HS amLODIPine [Norvasc] 5 mg PO HS Gabapentin [Neurontin] 100 mg PO HS Citalopram Hydrobromide [CeleXA] 40 mg PO HS ALPRAZolam [Xanax] 0.5 mg PO DAILY PRN PRN Reason: Anxiety Discontinued Metoprolol Succinate [Toprol XL] 50 mg PO HS Warfarin [Coumadin] 7.5 mg PO HS Discharge Medication List ALPRAZolam [Xanax] 0.5 mg PO DAILY PRN 10/02/19 [History] Citalopram Hydrobromide [CeleXA] 40 mg PO HS 10/02/19 [History] Gabapentin [Neurontin] 100 mg PO HS 10/02/19 [History] amLODIPine [Norvasc] 5 mg PO HS 10/02/19 [History] glipiZIDE [Glucotrol XL] 2.5 mg PO HS 10/02/19 [History] Apixaban [Eliquis] 5 mg PO BID 30 Days #60 tab 10/04/19 [Rx] Aspirin 81 mg PO DAILY 30 Days #30 chew 10/04/19 [Rx] Metoprolol Succinate (ER) [Toprol XL] 75 mg PO HS 30 Days #90 tab.er.24h 10/04/19 [Rx] Follow up Appointment(s)/Referral(s): Dr Yasir [Other] - 10/12/19 10:00 am (Thursday -they are requesting you to be there 15mins early) Rema Linares MD [STAFF PHYSICIAN] - 2 Weeks (Spoke to administrative receptionist. Office to call with appointment time) Patient Instructions/Handouts: A-fib (Atrial Fibrillation) (DC), Chest Pain (DC) Activity/Diet/Wound Care/Special Instructions: Eliquis script filled at [facility] using free 30 day coupon Activity Limited until follow-up Continue current diet Follow-up with primary care provider upon discharge Follow-up with cardiology Discharge Disposition: HOME SELF-CARE
--- NOTE | 2019-10-04 18:01 | ECHOF ---
Referral Reason:afib MEASUREMENTS -------- HEIGHT: 167.6 cm WEIGHT: 83.9 kg BP: 112/53 RVIDd: 3.5 cm (< 3.3) IVSd: 1.2 cm (0.6 - 1.1) LVIDd: 4.7 cm (3.9 - 5.3) LVPWd: 1.2 cm (0.6 - 1.1) IVSs: 1.8 cm LVIDs: 3.2 cm LVPWs: 1.6 cm LA Diam: 4.2 cm (2.7 - 3.8) LAESV Index (A-L): 38.19 ml/m Ao Diam: 2.9 cm (2.0 - 3.7) AV Cusp: 1.4 cm (1.5 - 2.6) MV EXCURSION: 17.701 mm (> 18.000) MV EF SLOPE: 105 mm/s (70 - 150) EPSS: 0.5 cm MV E Mega: 1.34 m/s MV DecT: 174 ms MV A Mega: 0.80 m/s MV E/A Ratio: 1.68 AV maxP.00 mmHg AV meanP.21 mmHg RAP: 5.00 mmHg RVSP: 40.11 mmHg TAPSE: 25.38 mm FINDINGS -------- Sinus rhythm. This was a technically adequate study. The left ventricular size is normal. There is borderline concentric left ventricular hypertrophy. Overall left ventricular systolic function is normal with, an EF between 60 - 65 %. Mitral Doppler inflow pattern suggests diastolic filling abnormality. The right ventricle is mildly enlarged. LA is moderately dilated 34-39 ml/m2 The right atrium is normal in size. Interatrial and interventricular septum intact. There is mild aortic valve sclerosis. Trace amount of aortic regurgitation. There is mild aortic stenosis present. Peak/mean gradient across the Aortic Valve is 27.00mmHg / 14.21mmHg. The mitral valve leaflets are mildly thickened. Mild mitral annular calcification present. Mild m itral regurgitation is present. Mild tricuspid regurgitation present. There is mild pulmonary hypertension. The right ventricular systolic pressure, as measured by Doppler, is 40.11mmHg. Trace/mild (physiologic) pulmonic regurgitation. The aortic root size is normal. Normal inferior vena cava with normal inspiratory collapse consistent with estimated right atrial pre ssure of 5 mmHg. There is no pericardial effusion. CONCLUSIONS -------- 1. Sinus rhythm. 2. This was a technically adequate study. 3. The left ventricular size is normal. 4. There is borderline concentric left ventricular hypertrophy. 5. Overall left ventricular systolic function is normal with, an EF between 60 - 65 %. 6. Mitral Doppler inflow pattern suggests diastolic filling abnormality. 7. The right ventricle is mildly enlarged. 8. LA is moderately dilated 34-39 ml/m2 9. The right atrium is normal in size. 10. Interatrial and interventricular septum intact. 11. There is mild aortic valve sclerosis. 12. Trace amount of aortic regurgitation. 13. There is mild aortic stenosis present. 14. Peak/mean gradient across the Aortic Valve is 27.00mmHg / 14.21mmHg. 15. The mitral valve leaflets are mildly thickened. 16. Mild mitral annular calcification present. 17. Mild mitral regurgitation is present. 18. Mild tricuspid regurgitation present. 19. There is mild pulmonary hypertension. 20. The right ventricular systolic pressure, as measured by Doppler, is 40.11mmHg. 21. Trace/mild (physiologic) pulmonic regurgitation. 22. The aortic root size is normal. 23. Normal inferior vena cava with normal inspiratory collapse consistent with estimated right atrial pressure of 5 mmHg. 24. There is no pericardial effusion. RN ORTHOPAEDICS: Elva Morfin RDCS
[2019-10-04] MEDS ORDERED: APIXABAN 5 MG TAB PO SCH (21:00)
--- NOTE | 2019-10-05 12:03 | EST ---
EXERCISE STRESS AGE: 64 SEX: F HT: 66" WT: 185 [facility] HEART RATE REST: 60 BLOOD PRESSURE REST: 155/68 MAXIMUM HEART RATE ACHIEVED: 77 MAXIMUM BLOOD PRESSURE: 155/68 INDICATIONS: Chest pain, atrial fibrillation. CLINICAL INFORMATION: A Persantine nuclear study was performed. Peak heart rate of 77 was achieved. Maximum blood pressure of 155/68 mmHg is noted. Resting EKG shows normal sinus rhythm with normal [place] interval and QRS duration and normal ST-T waves. No ST-segment depression suggestive of ischemia is noted. The results of the nuclear study will follow. MMODL / IJN: [id number] /
== END 2019-10-04 14:41 | disposition home or self-care (01) | DRG 309 ==
LOC: EC 15:19 → 3SCARD 17:07
PROVIDERS: ADMIT Internal Medicine; ATTEND Internal Medicine
DX: I48.0 Paroxysmal atrial fibrillation (principal); E87.1 Hypo-osmolality and hyponatremia; E78.5 Hyperlipidemia, unspecified; D50.9 Iron deficiency anemia, unspecified; E11.9 Type 2 diabetes mellitus without complications; F32.9 Major depressive disorder, single episode, unspecified; I25.10 Atherosclerotic heart disease of native coronary artery without angina pectoris; I10 Essential (primary) hypertension; G47.30 Sleep apnea, unspecified; F41.9 Anxiety disorder, unspecified; I35.0 Nonrheumatic aortic (valve) stenosis; I25.2 Old myocardial infarction; Z79.84 Long term (current) use of oral hypoglycemic drugs; Z79.01 Long term (current) use of anticoagulants; Z79.899 Other long term (current) drug therapy; Z95.5 Presence of coronary angioplasty implant and graft; Z98.84 Bariatric surgery status; Z88.8 Allergy status to other drugs, medicaments and biological substances; Z91.040 Latex allergy status
CPT/HCPCS: 36415; 71046; 78452; 80048; 80053; 80061; 82150; 83690; 83735; 84443; 84484; 85025; 85610; 85730; 93005; 93017; 93306; 96365; 99291

== ENCOUNTER → 2020-02-28 | Outpatient (CLI) | payer OTHER ==
[2020-02-28 20:56] LABS: African American GFR (CKD) 90.9 (60.0-200.0); Albumin/Globulin Ratio 1.74 (1.60-3.17); Anion Gap 7.2 mmol/L (4.00-12.00); Carbon Dioxide 24.8 mmol/L (21.6-31.8); Chol/HDL Ratio 2.33; Globulin 2.3 g/dL (1.6-3.3); LDL Cholesterol,Calculated 47.4 mg/dL (0.0-131.0); Non-African American GFR(CKD) 78.5 (60.0-200.0); Potassium 4.5 mmol/L (3.5-5.5); Total Bilirubin 0.5 mg/dL (0.2-1.2); Total Protein 6.3 g/dL (6.2-8.2); VLDL Calculation 12.6 mg/dL (5.00-40.00)
== END | disposition home or self-care (01) ==
LOC: LABWHC1 11:51
PROVIDERS: ATTEND Internal Medicine Interventional Cardiology
DX: E78.2 Mixed hyperlipidemia (principal)
CPT/HCPCS: 36415; 80053; 80061